=== PATIENT | female | born 1970 | race American Indian/Alaskan Native ===

== ENCOUNTER 2017-01-08 15:40 | Emergency (ER) | payer SELFPAY ==
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
--- NOTE | 2017-01-08 16:30 | Cat Scan Report ---
CRANIAL CT SCAN: History: Dizziness/lightheadedness. Serial contiguous axial images were obtained through the cranium. Intravenous contrast material was not administered. The ventricles are normal in size and appearance. There is no mass effect or midline shift. No areas of abnormally increased or decreased attenuation are seen. No mass lesion is seen. The mastoid air cells and visualized portions of the sinuses are normal. IMPRESSION: Cranial CT scan within normal limits.
[2017-01-08 17:01] LABS: Urine Drugs of Abuse Note Disclamer
[2017-01-08 17:16] LABS: Bilirubin,Urine NEG (Negative); Blood,Urine NEG (Negative); Ketones,Urine 20 mg/dL (Negative); Leukocyte Esterase,Urine NEG (Negative); Mucus,Urine FEW /HPF; Nitrite,Urine NEG (Negative)
[2017-01-08 17:36] LABS: Basophils % (Auto) 0.7 % (0.0-1.8); Eosinophils % (Auto) 0.6 % (0.0-4.3); Hematocrit 38.9 % (30.3-42.9); Hemoglobin 12.4 gm/dl (10.1-14.3); Mean Corpuscular HGB Conc 32 % (30-34); Mean Corpuscular Volume 80 fl (79-97); Platelet Count 193 K/mm3 (140-440); Red Blood Count 4.87 M/mm3 (3.65-5.03); Red Cell Distribution Width 14.6 % (13.2-15.2); White Blood Count 7.1 K/mm3 (4.5-11.0)
[2017-01-08 17:37] LABS: Mean Corpuscular Hemoglobin 26 pg (28-32)
[2017-01-08 18:11] LABS: Creatine Kinase MB 2.7 ng/mL (0.0-4.0)
[2017-01-08 18:14] LABS: Alanine Aminotransferase 11 units/L (7-56); Albumin 4.4 g/dL (3.9-5); Albumin/Globulin Ratio 1.2 %; Alkaline Phosphatase 67 units/L (35-129); Anion Gap 20 mmol/L; Blood Urea Nitrogen 12 mg/dL (7-17); Calcium 9.4 mg/dL (8.4-10.2); Carbon Dioxide 23 mmol/L (22-30); Chloride 101.9 mmol/L (98-107); Creatine Kinase 200 units/L (30-135); Glucose 89 mg/dL (65-100); Potassium 3.6 mmol/L (3.6-5.0); Sodium 141 mmol/L (137-145); Total Protein 8.1 g/dL (6.3-8.2)
[2017-01-08 20:06] VITALS: BP 112/70
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
--- NOTE | 2017-01-09 07:28 | XRay Report ---
ROUTINE CHEST, TWO VIEWS: HISTORY: Difficulty breathing, heavy breathing. The trachea, heart, mediastinal contour, lung rankin and bony thorax are unremarkable. IMPRESSION: Unremarkable chest x-ray.
== END 2017-01-08 21:28 | disposition home or self-care (01) ==
LOC: ED 15:40
DX: R20.0 Anesthesia of skin (principal)
CPT/HCPCS: 36415; 70450; 71020; 80053; 80307; 81001; 82550; 82553; 84484; 85025; 93005; 93010; 99284; G0480; 80320